=== PATIENT | male | born 1985 | race Caucasian/White ===

== ENCOUNTER 2017-08-05 20:04 | Emergency (ER) | payer SELFPAY ==
[~2017-08-05] VITALS: Ht 182.9 cm; Wt 155.6 kg
[~2017-08-05 20:04] MED LIST: BACTRIM,SEPT1 TABLET; KEFLEX500 MG; NAPROSYN500 MG; NO MEDS; VICODIN,LORT1 TABLET
[2017-08-05] MEDS ORDERED: NORCO 5/3251 TABLET PO (20:42)
[2017-08-05] MEDS ORDERED: AMOXICILLIN875 MG PO (20:42)
[2017-08-05] MEDS ORDERED: NAPROXEN500 MG PO (20:42)
[2017-08-05 21:00] VITALS: BP 144/77
== END 2017-08-05 21:21 | disposition home or self-care (01) ==
LOC: RME 20:04 → EME 20:04 → RME 21:21
DX: K08.89 Other specified disorders of teeth and supporting structures (principal); K03.81 Cracked tooth; R22.0 Localized swelling, mass and lump, head; F17.200 Nicotine dependence, unspecified, uncomplicated